=== PATIENT | male | born 1965 | race Caucasian/White ===

== ENCOUNTER 2016-10-27 04:39 | Emergency (ER) | payer SELFPAY ==
[~2016-10-27] VITALS: Ht 180.3 cm; Wt 81.6 kg
[2016-10-27 04:45] VITALS: BP 149/90
--- NOTE | 2016-10-27 04:51 | NUR ---
TO ER BED 3
--- NOTE | 2016-10-27 04:54 | NUR ---
50Y/M PATIENT PRESENTS TO ED WITH C/O RT. SHOULDER PAIN X 3 WKS . PT STATES PAIN STARTED 3 WKS AGO, ON AND OFF, TODYA PAIN INCREASES, NO TRAUMA NOR INJUSRY; SKIN IS PINK/WARM/DRY; AAOX4 WITH EVEN AND STEADY GAIT; LUNGS CLEAR BL; HR EVEN AND REGULAR; PT DENIES ANY FEVER, CP, SOB, OR COUGH AT THIS TIME; PATIENT STATES PAIN OF 6/10 AT THIS TIME; VSS; PATIENT POSITIONED FOR COMFORT; HOB ELEVATED; BEDRAILS UP X2; BED DOWN. ER MD MADE AWARE OF PT STATUS.
--- NOTE | 2016-10-27 05:00 | NUR ---
Patient being evaluated by DR. GILES at bedside.
--- NOTE | 2016-10-27 05:38 | NUR ---
Patient discharged with v/s stable. Written and verbal after care instructions given and explained. Patient alert, oriented and verbalized understanding of instructions. Ambulatory with steady gait. All questions addressed prior to discharge. ID band removed. Patient advised to follow up with PMD. Rx of NAPROSYN 500 MG given. Patient educated on indication of medication including possible reaction and side effects. Opportunity to ask questions provided and answered.
[2016-10-27 05:41] VITALS: BP 135/85
== END 2016-10-27 05:38 | disposition home or self-care (01) ==
LOC: MED 04:39
DX: S43.401A Unspecified sprain of right shoulder joint, initial encounter (principal); X58.XXXA Exposure to other specified factors, initial encounter; Y93.89 Activity, other specified; Y92.89 Other specified places as the place of occurrence of the external cause; Y99.8 Other external cause status
CPT/HCPCS: 99283

== ENCOUNTER 2016-11-14 03:16 | Emergency (ER) | payer SELFPAY ==
[~2016-11-14] VITALS: Ht 180.3 cm; Wt 81.6 kg
[2016-11-14 03:19] VITALS: BP 156/102
--- NOTE | 2016-11-14 03:27 | NUR ---
AMBULATED TO ER BED 1
--- NOTE | 2016-11-14 03:59 | NUR ---
Patient being evaluated by physician.
[2016-11-14] MEDS ORDERED: CEPHALEXIN 500 MG CAP PO ONE (04:25)
[2016-11-14 05:00] VITALS: BP 145/99
--- NOTE | 2016-11-14 05:00 | NUR ---
Patient discharged with v/s stable. Written and verbal after care instructions given and explained. Patient alert, oriented and verbalized understanding of instructions. Ambulatory with steady gait. All questions addressed prior to discharge. ID band removed. Patient advised to follow up with PMD. Rx of Batroban cathie and Keflex given. Patient educated on indication of medication including possible reaction and side effects. Opportunity to ask questions provided and answered.
== END 2016-11-14 05:00 | disposition home or self-care (01) ==
LOC: MED 03:16
DX: L01.00 Impetigo, unspecified (principal); F17.210 Nicotine dependence, cigarettes, uncomplicated
CPT/HCPCS: 99283

== ENCOUNTER 2019-03-11 10:03 | Inpatient (IN) | payer OTHER ==
[~2019-03-11] VITALS: Ht 180.3 cm; Wt 93.9 kg
[2019-03-11 10:04] VITALS: BP 133/88
--- NOTE | 2019-03-11 10:15 | NUR ---
PT AMB TO BED 12
--- NOTE | 2019-03-11 10:23 | NUR ---
C/O LOWER BACK PAIN, DYSURIA, AND NAUSEA X 2 DAYS. PAIN 10/10 SHARP AND CONTINUOUS. PT CONTINENT. URINE YELLOW/SCOOBY AND CLOUDY. DENIES FREQUENCY OR URGENCY. PT TACHY AT 102, ALERT AND AWAKE. BED IS DOWN, LOCKED, BED RAIL X 1. MED HX:DENIES
--- NOTE | 2019-03-11 11:09 | NUR ---
DR ALCALA AT BEDSIDE
[2019-03-11] MEDS ORDERED: NACL 0.9% 1,000 ML IV ONE (11:11)
[2019-03-11] MEDS ORDERED: NACL 0.9% 2,000 ML IV SCH (11:11)
[2019-03-11] MEDS ORDERED: MORPHINE SULFATE 4 MG/ML SYR IVP ONE (11:15)
[2019-03-11] MEDS ORDERED: ONDANSETRON 4 MG/2 ML VIAL IVP ONE (11:15)
[2019-03-11] MEDS ORDERED: KETOROLAC 30 MG/ML VIAL IVP ONE (11:15)
[2019-03-11] MEDS ORDERED: GENTAMICIN 80 MG in DEXTROSE 5% 100 ML IV ONE (11:15)
[2019-03-11] MEDS ORDERED: cefTRIAXone 1,000 MG in DEXT 5% MINI-BAG PLUS 50 ML IV ONE (11:15)
[2019-03-11] MEDS ORDERED: PROMETHAZINE 25 MG/ML VIAL IM ONE (11:15)
[2019-03-11] MEDS ORDERED: GENTAMICIN 80 MG/2 ML VIAL ONE (11:21)
[2019-03-11] MEDS ORDERED: cefTRIAXone 1,000 MG VIAL ONE (11:21)
--- NOTE | 2019-03-11 11:45 | NUR ---
MEDICATIONS BEIGN ADMINISTERED. PT TOLERATING WELL. PAIN 10/10 UPON ADMINISTRATION, WILL REEVALUATE
--- NOTE | 2019-03-11 11:52 | NUR ---
IV DISCONNECTED, PT TAKEN TO CT VIA WHEELCHAIR
[2019-03-11 11:57] LABS: HEMATOCRIT 45.3 % (36-52); HEMOGLOBIN 14.8 g/dL (12.0-18.0); MEAN CORPUSCULAR HEMOGLOBIN 30 pg (27-31); MEAN CORPUSCULAR HGB CONC 33 g/dL (33-37); MEAN CORPUSCULAR VOLUME 92.2 fL (80-94); PLATELET COUNT (AUTO) 226 K/uL (140-450); RED BLOOD CELL COUNT(AUTO) 4.91 MIL/uL (4.20-6.10); RED CELL DISTRIBUTION WIDTH 13.8 % (11.6-13.7); WHITE BLOOD COUNT (AUTO) 20.1 K/uL (4.8-10.8)
--- NOTE | 2019-03-11 12:01 | NUR ---
PT RETURNED FROM CT, IV RECONNECTED
[2019-03-11 12:03] LABS: APPEARANCE,URINE CLOUDY (CLEAR); BILIRUBIN,URINE NEGATIVE (NEGATIVE); BLOOD, URINE 3+ (NEGATIVE); COLOR,URINE RED (YELLOW); LEUKOCYTE ESTERASE ,URINE 1+ (NEGATIVE); NITRITE, URINE POSITIVE (NEGATIVE); UGLUCOSE TRACE (NEGATIVE)
[2019-03-11 12:09] LABS: LYMPHOCYTES % (MANUAL) 9 % (20-46); MONOCYTES % (MANUAL) 6 % (5-12)
[2019-03-11 12:10] LABS: ANION GAP 14.8 (8-16); CARBON DIOXIDE 26.4 mmol/L (21-32); CREATININE 0.9 mg/dL (0.7-1.3); POTASSIUM 3.2 mmol/L (3.5-5.1)
[2019-03-11 12:16] LABS: ALBUMIN 3.5 g/dL (3.4-5.0); TOTAL BILIRUBIN 0.4 mg/dL (0.0-1.0)
--- NOTE | 2019-03-11 12:50 | NUR ---
DR ALCALA RE EVALUATING
--- NOTE | 2019-03-11 12:50 | NUR ---
PT SLEEPING, AROUSABLE TO SHAKING. PT STATES PAIN 5/10
[2019-03-11 12:51] LABS: WBC,URINE 16-25 (MOD) /HPF (0-5)
--- NOTE | 2019-03-11 12:51 | NUR ---
PT SWEATING, ORAL TEMP 98.0. VS STABLE.
[2019-03-11 12:52] LABS: RBC,URINE 20-50 /HPF (0-5)
--- NOTE | 2019-03-11 13:53 | NUR ---
PER PT, NO MEDICATIONS TAKEN AT HOME OR PMH
--- NOTE | 2019-03-11 14:01 | NUR ---
VS STABLE, PTS FAMILY MEMBER AT BEDSIDE
--- NOTE | 2019-03-11 14:06 | NUR ---
PT AMBULATES TO RESTROOM WITH STEADY GAIT
--- NOTE | 2019-03-11 14:11 | NUR ---
PT DECLINED PCP BE NOTIFIED OF ADMISSION. SHU AWAD, PTS FAMILY, AT BEDSIDE AND VERBALLY NOTIFIED
[2019-03-11 14:45] VITALS: BP 130/88
--- NOTE | 2019-03-11 14:45 | NUR ---
PATIENT WHEELED ONTO FLOOR VIA GURNEY. PATIENT AMBULATED TO BED ON STEADY GAIT. REPORT RECEIVED FROM DECAL CUTTERMARCO A MACHADO AT BEDSIDE FOR CONTINUITY OF CARE. PATIENT'S GIRLFRIEND SHU AT BEDSIDE. PATIENT'S BELONGINGS LIST SIGNED BY JEANNETTE STRICKLAND AND RADHA STRICKLAND. PATIENT ON TELE MONITOR. IV SITE INTACT, ASYMPTOMATIC, CURRENTLY INFUSING IVF WELL. PATIENT HAS NO COMPLAINTS OF PAIN AT THIS TIME. ORIENTED PATIENT AND GIRLFRIEND TO FLOOR, VISITING HOURS, CALL LIGHT, BATHROOM. VERBALIZED PLAN OF CARE. THEY VERBALIZED UNDERSTANDING. UPDATED BOARD. CALL LIGHT WITHIN REACH. WILL CONTINUE TO MONITOR PATIENT.
--- NOTE | 2019-03-11 14:50 | NUR ---
Patient will be admitted to care of [facility]. Admited to TELE. Will go to room 119. Belongings list completed. Report to RADHA/RN. PATIENT REPORTS NO PAIN AT THIS TIME. REQUESTING FOOD, RADHA NOTIFIED. VS STABLE. NS RUNNING AT 100 MLS PER HOUR, APPROX 875 ML LEFT
--- NOTE | 2019-03-11 14:50 | NUR ---
PAGED DR. STORY FOR ORDERS. WAITING FOR HIS CALL BACK.
[2019-03-11] MEDS ORDERED: ONDANSETRON 4 MG/2 ML VIAL IVP PRN ×2 (15:20→17:05)
[2019-03-11] MEDS ORDERED: HYDROcodone/APAP 5/325 MG 1 TAB TAB PO PRN (15:20)
[2019-03-11] MEDS ORDERED: INFLUENZA VACCINE QUAD 0.5 ML SYR IMVAC PRN (15:20)
[2019-03-11] MEDS ORDERED: POTASSIUM CHLORIDE 10 MEQ TABER PO SCH (15:20)
--- NOTE | 2019-03-11 15:20 | NUR ---
DR. STORY CALLED BACK, ASKED FOR ADMIT ORDERS. PATIENT NOW ON REGULAR DIET WITH PRN MEDICATIONS. PATIENT AND GIRLFRIEND SHU AWARE. DOCTOR JEZ WILL BE IN LATER TO SEE PATIENT.
[2019-03-11 16:00] VITALS: BP 132/86
--- NOTE | 2019-03-11 17:00 | NUR ---
DR STORY IN TO SEE THE PATIENT. WILL WAIT FOR HIS NEW ORDERS. PATIENT BACK TO RESTING IN BED, NO COMPLAINTS A THIS TIME. WILL CONTINUE TO MONITOR PATIENT.
[2019-03-11] MEDS ORDERED: IPRATROPIUM 0.02% 0.5 MG/2.5 ML NEBU INH PRN (17:05)
[2019-03-11] MEDS ORDERED: SODIUM PHOSPHATE 118 ML ENEM RC PRN (17:05)
[2019-03-11] MEDS ORDERED: MAG SULF 2000 MG/WATER PREMIX 50 ML IV PRN (17:05)
[2019-03-11] MEDS ORDERED: ALBUTEROL 0.083% 2.5 MG/3 ML NEBU INH PRN (17:05)
[2019-03-11] MEDS ORDERED: DOCUSATE SODIUM 250 MG GELCAP PO PRN (17:05)
[2019-03-11] MEDS ORDERED: diphenhydrAMINE 50 MG/ML VIAL IVP PRN (17:05)
[2019-03-11] MEDS ORDERED: POTASSIUM CHLORIDE 10 MEQ TABER PO PRN (17:05)
[2019-03-11] MEDS ORDERED: MORPHINE SULFATE 2 MG/ML SYR IVP PRN (17:05)
[2019-03-11] MEDS ORDERED: guaiFENesin DM 200/20 MG-10 ML 10 ML UDC PO PRN (17:05)
[2019-03-11] MEDS ORDERED: BISACODYL 10 MG SUPP RC PRN (17:05)
[2019-03-11] MEDS ORDERED: MAGNESIUM OXIDE 400 MG TAB PO PRN (17:05)
[2019-03-11] MEDS ORDERED: ACETAMINOPHEN 325 MG TAB PO PRN (17:05)
[2019-03-11] MEDS ORDERED: ALUMINUM HYD/MAG/SIMETHICONE 30 ML UDC PO PRN (17:05)
[2019-03-11] MEDS ORDERED: ACETAMINOPHEN 650 MG SUPP RC PRN (17:05)
--- NOTE | 2019-03-11 19:13 | NUR ---
REPORT GIVEN AT BEDSIDE FOR CONTINUITY OF CARE TO [facility]. PATIENT IN STABLE CONDITION.
--- NOTE | 2019-03-11 19:20 | NUR ---
RECEIVED BEDSIDE REPORT FROM RADHA RN DAYSHIFT NURSE FOR CONTINUITY OF CARE, PT IN STABLE CONDITION.
[2019-03-11 20:00] VITALS: BP 132/80
--- NOTE | 2019-03-11 20:00 | NUR ---
PT IN BED AOX4, HE IS RESTING WITH EYES CLOSED BUT AROUSABLE TO NAME AND LIGHT TOUCH. PT DENIES PAIN AT THIS TIME. IV SITE 20G ON LEFT HAND INTACT AND ASYMPTOMATIC. N/S RUNNING AT 100MLS/HR. V/S FOLLOWS : T 98.2 P 90 R 18 B/P 132/80 02 100% ON ROOM AIR. BED LOW SIDE RAILS UP X2 AND CALL KELLOGG IN REACH.
[2019-03-11] MEDS ORDERED: ZOLPIDEM 5 MG TAB PO PRN (21:00)
--- NOTE | 2019-03-11 21:30 | NUR ---
PT IN BED RESTING WITH EYES CLOSED, NO S/S OF PAIN OR DISTRESS NOTED. BED LOW, SIDE RAILS UP AND CALL KELLOGG IN EACH. NS RUNNING ORDERED.
[2019-03-11] MEDS ORDERED: NACL 0.9% 1,000 ML IV SCH (23:00)
--- NOTE | 2019-03-11 23:00 | NUR ---
NORMAL SALINE BAG REPLACED, NS RATE CHANGED TO 60MLS/HR. PT RESTING NO S/S OF PAIN OR DISTRESS NOTED, ALL UNIVERS[employer] F[place]S PRECAUTIONS IN PLACE.
[2019-03-12] VITALS: BP 120/79
--- NOTE | 2019-03-12 00:30 | NUR ---
PT IN BED V/S FOLLOWS: T 97.4 P 90 R 18 B/P 120/79 02 99% ON ROOM AIR. NO S/S OF PAIN OR DISTRESS NOTED AND ALL UN[employer] F[place]S PRECAUTIONS IN PLACE.
--- NOTE | 2019-03-12 02:00 | NUR ---
PT IN BED SLEEPING IV SITE INTACT AND RUNNING N/S AT 60MLS/HR ORDERED. ALL UNIVERS[employer] F[place]S PRECAUTIONS IN PLACE.
[2019-03-12 04:00] VITALS: BP 125/82
--- NOTE | 2019-03-12 04:00 | NUR ---
PT IN BED, NO C/O OF PAIN THIS SHIFT. PT SAID HE VOIDED X2 NO BLOOD IN URINE, V/S FOLLOWS : T 97.1 P 76 R 18 B/P 125/82 02 99% ON ROOM AIR. ALL [place] F[place]S PRECAUTIONS IN PLACE.
[2019-03-12 06:07] LABS: BASOPHILS % (AUTO) 0.3 % (0.0-2.0); EOSINOPHILS # (AUTO) 0.2 K/uL (0-0.4); EOSINOPHILS % (AUTO) 1.4 % (0.0-4.0); HEMATOCRIT 39.1 % (36-52); HEMOGLOBIN 12.6 g/dL (12.0-18.0); LYMPHOCYTES % (AUTO) 15.4 % (20.5-51.1); MEAN CORPUSCULAR HEMOGLOBIN 30 pg (27-31); MEAN CORPUSCULAR HGB CONC 32 g/dL (33-37); MEAN CORPUSCULAR VOLUME 92.8 fL (80-94); MONOCYTES # (AUTO) 0.9 K/uL (0.8-1.0); MONOCYTES % (AUTO) 7.1 % (1.7-9.3); NEUTROPHILS # (AUTO) 9.7 K/uL (1.8-7.7); NEUTROPHILS % (AUTO) 75.8 % (42.2-75.2); PLATELET COUNT (AUTO) 221 K/uL (140-450); RED BLOOD CELL COUNT(AUTO) 4.21 MIL/uL (4.20-6.10); RED CELL DISTRIBUTION WIDTH 13.9 % (11.6-13.7); WHITE BLOOD COUNT (AUTO) 12.8 K/uL (4.8-10.8)
--- NOTE | 2019-03-12 07:05 | NUR ---
RECEIVED REPORT FROM NIGHT NURSE. PATIENT IS ASLEEP, ABLE TO WAKE. RESPIRATION EVEN AND UNLABORED. IV INTACT AND PATENT TO LEFT HAND WITH IVF NS @ 60ML/HR. TOLERATING WELL. WILL CONTINUE TO MONITOR.
[2019-03-12 08:00] VITALS: BP 142/89
--- NOTE | 2019-03-12 08:19 | NUR ---
PATIENT HAS BEEN SCREENED AND CATEGORIZED LOW NUTRITION RISK. PATIENT WILL BE SEEN WITHIN 7 DAYS OF ADMISSION. 03/18/[address]
--- NOTE | 2019-03-12 09:30 | NUR ---
PT IS ALERT AND ORIENTED X4. DENIES ANY PAIN OR DISCOMFORT. PATIENT IS SITTING UP IN BED, RESTING QUIETLY.
[2019-03-12] MEDS ORDERED: POTASSIUM CHLORIDE 10 MEQ TABER PO SCH (11:00)
--- NOTE | 2019-03-12 11:30 | NUR ---
PT ALERT AND ORIENTED X4. DENIES PAIN OR DISCOMFORT. NO S/S OF DISTRESS NOTED.
[2019-03-12] MEDS ORDERED: LEVO750T2 PO (11:48)
[2019-03-12 12:00] VITALS: BP 146/92
--- NOTE | 2019-03-12 13:15 | NUR ---
PT DISCHARGED WITH FAMILY TO HOME VIA PRIVATE VEHICLE. ALL DISCHARGE INSTRUCTIONS GIVEN AND ALL BELONGINGS GIVEN WITH PATIENT. IV CANNULA REMOVED. BLEEDING CONTROLLED. ID BAND REMOVED.
--- NOTE | 2019-03-12 13:27 | NUR ---
Button Broacher Note: Unable to conduct assessment/discharge plan, patient was discharged.
== END 2019-03-12 13:15 | disposition home or self-care (01) | DRG 720 ==
LOC: MED 10:03 → MTU 14:21
PROVIDERS: ADMIT Internal Medicine Pulmonary Disease; ATTEND Internal Medicine Pulmonary Disease
DX: A41.9 Sepsis, unspecified organism (principal); N12 Tubulo-interstitial nephritis, not specified as acute or chronic; F17.210 Nicotine dependence, cigarettes, uncomplicated
CPT/HCPCS: 36415; 80053; 81001; 82150; 83605; 83690; 85025; 87040; 87081; 87086; 87186; 96361; 96365; 96367; 96375; 99285; J0696; J1580; J1885; J2270; J2405; J2550; J7030; J7060